=== PATIENT | male | born 1940 | race Caucasian/White ===

== ENCOUNTER 2016-08-16 07:52 | Emergency (ER) | payer OTHER, MEDICARE ==
[2016-08-16 08:09] VITALS: BP 145/87; PULSE 80; RESP 16; TEMP 99.1; O2SAT 98
--- NOTE | 2016-08-16 08:17 | EDPHY ---
H & P Time Seen by Provider: 08/16/16 08:17 HPI/ROS: CHIEF COMPLAINT: Sore throat HISTORY OF PRESENT ILLNESS: Patient started getting sick on Thursday of this week with a sore throat followed by 2-3 days of fever and chills and decreased energy. He felt clammy and developed a cough which was worse at night and last night was up all night because of sore throat and cough. He also has some nasal congestion related. REVIEW OF SYSTEMS: Eye: no change in vision ENT: No ear symptoms or dental symptoms Cardiac: no chest pain or syncope Pulmonary: Not short of breath and no hemoptysis Abdomen: no vomiting, diarrhea, abdominal pain Musculoskeletal: no back pain Skin: Recent left cheek biopsy Neuro: no headache Constitutional: HPI : no urinary symptoms A comprehensive 10 point review of systems is otherwise negative aside from elements mentioned in the history of present illness. PAST MEDICAL HISTORY: Hyperlipidemia Social history: Travel to [place] in June but no other 3rd world travel. [facility]. General Appearance: Alert and conversant, cooperative. Eyes: No scleral icterus. ENT, Mouth: Slight pharyngeal erythema but no exudate and no trismus. No dental tenderness or gum swelling. Uvula midline. Floor of the mouth is soft. Respiratory: Normal respiratory effort, breath sounds equal, lungs are clear to auscultation. No stridor or drooling. Cardiovascular: Regular rate and rhythm. Gastrointestinal: Abdomen is soft and non tender. Neurological: Alert and oriented x3. Normally conversant. Face symmetric, normal movement and sensation in all extremities. Skin: Warm and dry, no rashes. Band-Aid over left cheek biopsy site. Musculoskeletal: No peripheral edema and no joint swelling. Neck supple. Psychiatric: Not agitated. Emergency Department course/MDM: Rapid strep negative. Oral dexamethasone discussed and consented. Flu test ordered to better informed patient of possible duration of symptoms. No history of ulcer and advised to take his Aleve which he has at home scheduled for the next 72 hours. I think that deep space neck infection or epiglottitis is unlikely, antibiotics not indicated, out of the 48 hour window for Tamiflu even if influenza is positive. Smoking Status: Former smoker Constitutional: Initial Vital Signs Temperature (C) 37.3 C 08/16/16 08:06 Heart Rate 80 08/16/16 08:06 Respiratory Rate 16 08/16/16 08:06 Blood Pressure 145/87 H 08/16/16 08:06 O2 Sat (%) 98 08/16/16 08:06 O2 Delivery Mode Room Air Allergies/Adverse Reactions: No Known Allergies Allergy (Verified 08/16/16 08:05) Home Medications: Medication Instructions Recorded Simvastin Unk Dose 05/18/14 Medical Decision Making Differential Diagnosis: Differential considered including but not limited to influenza, strep throat, viral pharyngitis, epiglottitis, peritonsillar abscess. - Data Points Laboratory Results: 08/16/16 08/16/16 08/16/16 Unknown 08:20 08:00 Influenza Typ A,B (DFA) POSITIVE FOR FLU B H (NEGATIVE) Group A Strep Screen NEGATIVE (NEGATIVE) Group A Strep DNA Pending Medications Given: Discontinued Medications Dexamethasone (Dexamethasone) 8 mg PO EDNOW ONE Stop: 08/16/16 08:39 Last Admin: 08/16/16 08:47 Dose: 8 mg Departure - Departure Disposition: Home, Routine, Self-Care Clinical Impression: Influenza B Pharyngitis Qualifiers: Pharyngitis/tonsillitis etiology: unspecified etiology Qualified Code(s): J02.9 - Acute pharyngitis, unspecified Condition: Good Instructions: Pharyngitis (ED), Influenza (ED) Additional Instructions: 1) rapid strep test negative 2) oral Aleve as on the bottle, scheduled for the next 72 hours 3) cough medication as discussed 4) you received a single dose of 8 mg oral dexamethasone in the emergency department 5) positive test for influenza B Referrals: Myles Hugo MD [Primary Care Provider] - As per Instructions
[2016-08-16] MEDS ORDERED: DEXAMETHASONE 2 MG TAB PO ONE (08:38)
[2016-08-16] MEDS ORDERED: DEXAMETHASONE 4 MG TAB ONE ×2 (08:41→08:45)
== END 2016-08-16 08:45 | disposition home or self-care (01) ==
DX: J10.1 Influenza due to other identified influenza virus with other respiratory manifestations (principal); Z87.891 Personal history of nicotine dependence

== ENCOUNTER 2016-12-20 11:21 | Emergency (ER) | payer OTHER, MEDICARE ==
[2016-12-20 11:47] VITALS: RESP 16
--- NOTE | 2016-12-20 12:12 | EDPHY ---
H & P Time Seen by Provider: 12/20/16 12:11 HPI/ROS: Chief complaint. Blood in urine HPI. 76-year-old male presents with blood from his penis after urination and after intercourse beginning 4 days ago. Initially the patient had intercourse with his and nose blood from his penis after the intercourse. There was no trauma or injury during intercourse. Then he was able to urinate normally without blood for 2 days. Last evening he urinated normally and urine was normal color and then following urination he had approximately 2 tbsp of blood from his penis. This happened again today. He has no abdominal pain no fever, no urinary frequency or dysuria. He does have a history of enlarged prostate with elevated PSA but biopsies were negative ROS Constitutional. no fever/chills, no weakness Eyes. no problems with vision ENT. no sore throat, no nasal drainage Cardiovascular. no chest pain Respiratory. no shortness of breath, no cough Abdominal. no abdominal pain, no nausea/vomiting, no diarrhea . Blood from penis after urination MS. no calf pain/swelling, no neck/back pain, no joint pain Skin. no rash Lymph. no swollen glands Neuro. no headache, no dizziness, no difficulty walking or with speech Past Medical/Surgical History: Past medical history significant for dyslipidemia, BPH Social History: , nonsmoker, no alcohol Smoking Status: Never smoked Physical Exam: General Appearance: Alert well-developed male mild distress vital signs are stable Eyes: Pupils equal and round no pallor or injection. ENT, Mouth: Mucous membranes are moist. Respiratory: There are no retractions, lungs are clear to auscultation. Cardiovascular: Regular rate and rhythm. Gastrointestinal: Abdomen is soft and nontender, no masses, bowel sounds normal. Penis and testicles are normal. Prostate is enlarged but is nontender. Neurological: Awake and alert, sensory and motor exams grossly normal. Skin: Warm and dry, no rashes. Musculoskeletal: Neck is supple nontender. Extremities symmetrical, full range of motion. Psychiatric: Patient is oriented X 3, there is no agitation. Constitutional: Initial Vital Signs Temperature (C) 36.5 C 12/20/16 11:42 Heart Rate 72 12/20/16 11:42 Respiratory Rate 16 12/20/16 11:42 Blood Pressure 171/107 H 12/20/16 11:42 O2 Sat (%) 98 12/20/16 11:42 O2 Delivery Mode Room Air Allergies/Adverse Reactions: No Known Allergies Allergy (Verified 08/16/16 08:05) Home Medications: Medication Instructions Recorded Simvastin Unk Dose 05/18/14 ASPIRIN 12/20/16 Viagra 12/20/16 Medical Decision Making ED Course/Re-evaluation: Urinalysis shows trace blood. Re-evaluation and the patient is stable. The patient, his , and I discussed treatment plan including criteria for return importance of follow-up and further evaluation I consulted with Dr. Dickerson who is in surgery but I relate information through his nurse. We would like for the patient to be re-evaluated by Dr. Dickerson on Thursday. Differential Diagnosis: I suspect that this is problem with patient's prostate as he has normal urination and then postvoid bleeding. I considered prostatitis however his prostate is not tender. I considered urinary tract infection and cystitis. Patient has no symptoms consistent with kidney stone - Data Points Laboratory Results: 12/20/16 12:27 Urine Color YELLOW Urine Appearance CLEAR Urine pH 7.0 (5.0-7.5) Ur Specific [place] 1.019 (1.002-1.030) Urine Protein NEGATIVE (NEGATIVE) Urine Ketones NEGATIVE (NEGATIVE) Urine Blood NEGATIVE (NEGATIVE) Urine Nitrate NEGATIVE (NEGATIVE) Urine Bilirubin NEGATIVE (NEGATIVE) Urine Urobilinogen NEGATIVE EU EU (0.2-1.0) Ur Leukocyte Esterase NEGATIVE (NEGATIVE) Urine RBC 10-15 /hpf H /hpf (0-3) Urine WBC 1-3 /hpf /hpf (0-3) Ur Epithelial Cells NONE SEEN /lpf /lpf (NONE-1+) Urine Glucose NEGATIVE (NEGATIVE) Departure - Departure Disposition: Home, Routine, Self-Care Clinical Impression: Hematuria Qualifiers: Hematuria type: gross Qualified Code(s): R31.0 - Gross hematuria Condition: Good Instructions: Hematuria (ED) Additional Instructions: Return over the weekend for worsening symptoms. I called and relayed the information to Dr. Epps for on-call for urology. Please call his office on Thursday morning at 9:00 a.m. for re-evaluation. Referrals: Myles Hugo MD [Primary Care Provider] - As per Instructions Hussein Dickerson MD [Medical Doctor] - 1-2 days without fail
[2016-12-20 12:51] LABS: COLOR YELLOW; LEUKOCYTE ESTERASE,URINE NEGATIVE (NEGATIVE); NITRITE,URINE NEGATIVE (NEGATIVE)
[2016-12-20 15:07] VITALS: BP 137/79; PULSE 53; TEMP 98.1; O2SAT 95
== END 2016-12-20 15:07 | disposition home or self-care (01) ==
DX: R31.0 Gross hematuria (principal); Z79.82 Long term (current) use of aspirin

== ENCOUNTER → 2017-01-15 | Outpatient (CLI) | payer OTHER, MEDICARE ==
[~2017-01-15] MED LIST: GADOBUTROL 10 ML VIAL IVP ONE
== END ==
LOC: FIMAGING 08:02
PROVIDERS: ATTEND Urology
DX: N40.2 Nodular prostate without lower urinary tract symptoms (principal); R97.20 Elevated prostate specific antigen [PSA]
CPT/HCPCS: 72197; 76377; A9585

== ENCOUNTER → 2017-02-09 | Outpatient (CLI) | payer OTHER, MEDICARE | LOC: BMCIMAGING 10:21 | PROVIDERS: ATTEND Internal Medicine | DX: M25.512 Pain in left shoulder (principal) | CPT/HCPCS: 73030; 90662; G0008; G0463 ==

== ENCOUNTER 2017-09-12 23:23 | Inpatient (IN) | payer OTHER, MEDICARE ==
--- NOTE | 2017-09-12 23:33 | CPEKG ---
Heart Rate: 56 RR Interval: 1071 P-R Interval: 260 QRSD Interval: 124 QT Interval: 468 QTC Interval: 452 P [place]: 54 QRS [place]: 66 T Wave [place]: 43 EKG Severity - ABNORMAL ECG - EKG Impression: SINUS RHYTHM EKG Impression: VENTRICULAR PREMATURE COMPLEX EKG Impression: FIRST DEGREE AV BLOCK EKG Impression: NONSPECIFIC INTRAVENTRICULAR CONDUCTION DELAY Electronically Signed By: Jose Alvarez 13-Sep-2017 05:24:27
[2017-09-12] MEDS ORDERED: LIDOCAINE 2% VISCOUS 15 ML UDCUP ONE (23:35)
[2017-09-12] MEDS ORDERED: MAG HYDROX/AL HYDROX/SIMETH 30 ML UDCUP ONE (23:35)
[2017-09-12] MEDS ORDERED: ASPIRIN 81 MG CHEWABLE TAB ONE (23:35)
[2017-09-12] MEDS ORDERED: LIDOCAINE 2% VISCOUS 15 ML UDCUP PO ONE (23:39)
[2017-09-12] MEDS ORDERED: MAG HYDROX/AL HYDROX/SIMETH 30 ML UDCUP PO ONE (23:39)
[2017-09-12] MEDS ORDERED: ASPIRIN 81 MG CHEWABLE TAB PO ONE (23:40)
[2017-09-12 23:45] LABS: PLATELET COUNT 211 10^3/uL (150-400)
--- NOTE | 2017-09-12 23:45 | EDPHY ---
H & P Time Seen by Provider: 09/12/17 23:27 HPI/ROS: Chief Complaint: Chest pain HPI: 77-year-old male began having lower chest and epigastric pain at 7:30 a.m. After eating dinner. Patient states that he 8 more than usual. The pain is been constant over the last 4 hr. There are no aggravating or alleviating factors. No shortness of breath. It is not radiating. Right now is about an 8 /10. He did take some Advil earlier without any relief. He had a similar episode about a week ago and the pain persisted overnight but had improved by morning. Does not have a family history of coronary artery disease. He does have a history of hyperlipidemia and prostate cancer. He has also seen border guard in the past but this is not for coronary artery disease. He is not sure why was referred to the border guard. No shortness of breath. No nausea or vomiting. No diarrhea or constipation. No recent travel. No leg pain or swelling. Pain is described as a dull aching in his upper abdomen. He does occasionally take Viagra, last was taken 3 days ago. ROS: 10 point Review of Systems is negative except as noted in the HPI. PMH: Prostate cancer, hyperlipidemia Social History: No smoking, occasional alcohol, no other drug use Family History: non-contributory Physical Exam: Gen: Awake, Alert, uncomfortable appearing HEENT: Nose: no rhinorrhea Eyes: PERRLA, EOMI Mouth: Moist mucosa Neck: Supple, no JVD Chest: nontender, lungs clear to auscultation Heart: S1, S2 normal, no murmur Abd: Soft, non-tender, no guarding Back: no CVA tenderness, no midline tenderness Ext: no edema, non-tender Skin: no rash Neuro: CN II-XII intact, Sensation grossly intact, Strength 5/5 in bilateral upper and lower extremities - Medical/Surgical History Hx Asthma: No Hx Chronic Respiratory Disease: No Hx Diabetes: No Hx Cardiac Disease: No Hx Renal Disease: No Hx Cirrhosis: No Hx Alcoholism: No Hx HIV/AIDS: No Hx Splenectomy or Spleen Trauma: No Other PMH: PMH: hyperlipidemia, BPH. PSH: NONE - Social History Smoking Status: Never smoked Constitutional: Initial Vital Signs Temperature (C) 36.6 C 09/12/17 23:25 Heart Rate 56 L 09/12/17 23:25 Respiratory Rate 18 09/12/17 23:25 Blood Pressure 217/99 H 09/12/17 23:25 O2 Sat (%) 96 09/12/17 23:25 O2 Delivery Mode Room Air O2 (L/minute) 3 Allergies/Adverse Reactions: No Known Allergies Allergy (Verified 09/12/17 23:42) Home Medications: Medication Instructions Recorded ASPIRIN 12/20/16 Viagra 12/20/16 Lipitor 40 mg (*) 09/12/17 Multivitamins 09/12/17 Medical Decision Making - Diagnostics EKG Interpretation: ECG time 11:30 p.m. Sinus rhythm with a rate of 56. There is a first-degree AV block. Nonspecific intraventricular conduction delay. No acute ST or T-wave changes. There is a single premature ventricular complex. Imaging Results: Chest x-ray shows no acute abnormality. He does have large gastric bubble. Imaging: I viewed and interpreted images myself ED Course/Re-evaluation: 77-year-old male with epigastric pain for the last 4 hr. He received aspirin here. No relief with GI cocktail. No relief with nitroglycerin x2. Initially was hypertensive and 14 is come down to 140 after nitro x2. He has had relief with morphine, is now down to a 2/10. No acute findings on his ECG but he does have first-degree AV block. Troponin is negative. LFTs are unremarkable. Abdomen is soft and benign. Will admit to the hospitalist for further monitoring and cardiac rule out. - Data Points Laboratory Results: Laboratory Results 09/12/17 23:35 09/12/17 23:35 09/12/17 09/12/17 09/12/17 23:35 23:35 23:35 WBC 9.68 10^3/uL H 10^3/uL (3.80-9.50) RBC 5.24 10^6/uL 10^6/uL (4.40-6.38) Hgb 16.8 g/dL g/dL (13.7-17.5) Hct 47.4 % % (40.0-51.0) MCV 90.5 fL fL (81.5-99.8) MCH 32.1 pg pg (27.9-34.1) MCHC 35.4 g/dL g/dL (32.4-36.7) RDW 12.2 % % (11.5-15.2) Plt Count 211 10^3/uL 10^3/uL (150-400) MPV 9.4 fL fL (8.7-11.7) Neut % (Auto) 80.3 % H % (39.3-74.2) Lymph % (Auto) 14.2 % L % (15.0-45.0) [place] % (Auto) 3.5 % L % (4.5-13.0) Eos % (Auto) 0.9 % % (0.6-7.6) Baso % (Auto) 0.8 % % (0.3-1.7) Nucleat RBC Rel Count 0.0 % % (0.0-0.2) Absolute Neuts (auto) 7.77 10^3/uL H 10^3/uL (1.70-6.50) Absolute Lymphs (auto) 1.37 10^3/uL 10^3/uL (1.00-3.00) Absolute Monos (auto) 0.34 10^3/uL 10^3/uL (0.30-0.80) Absolute Eos (auto) 0.09 10^3/uL 10^3/uL (0.03-0.40) Absolute Basos (auto) 0.08 10^3/uL 10^3/uL (0.02-0.10) Absolute Nucleated RBC 0.00 10^3/uL 10^3/uL (0-0.01) Immature Gran % 0.3 % % (0.0-1.1) Immature Gran # 0.03 10^3/uL 10^3/uL (0.00-0.10) Turbidity Cancelled Sodium 141 mEq/L mEq/L Cancelled (135-145) Potassium 4.3 mEq/L mEq/L Cancelled (3.5-5.2) Chloride 102 mEq/L mEq/L Cancelled (97-110) Carbon Dioxide 27 mEq/l mEq/l Cancelled (22-31) Anion Gap 12 mEq/L mEq/L Cancelled (8-16) BUN 29 mg/dL H mg/dL Cancelled (7-23) Creatinine 0.9 mg/dL mg/dL Cancelled (0.7-1.3) Estimated GFR > 60 Cancelled Glucose 151 mg/dL H mg/dL Cancelled (70-100) Calcium 9.7 mg/dL mg/dL Cancelled (8.5-10.4) Total Bilirubin 0.7 mg/dL mg/dL (0.1-1.4) Conjugated Bilirubin 0.4 mg/dL mg/dL (0.0-0.5) Unconjugated Bilirubin 0.3 mg/dL mg/dL (0.0-1.1) AST 62 IU/L H IU/L (17-59) ALT 67 IU/L IU/L (21-72) Alkaline Phosphatase 90 IU/L IU/L (38-126) Troponin I < 0.012 ng/mL ng/mL Cancelled (0.000-0.034) Total Protein 8.1 g/dL g/dL (6.3-8.2) Albumin 4.6 g/dL g/dL (3.5-5.0) Lipase 218 IU/L IU/L (23-300) Specimen Hemolysis Cancelled Medications Given: Discontinued Medications Al Hydroxide/Mg Hydroxide (Maalox Susp) 30 ml PO ONCE ONE Stop: 09/12/17 23:40 Last Admin: 09/12/17 23:48 Dose: 30 ml Aspirin (Aspirin) 324 mg PO EDNOW ONE Stop: 09/12/17 23:41 Last Admin: 09/12/17 23:48 Dose: 324 mg Lidocaine (Lidocaine 2% Viscous) 15 ml PO ONCE ONE Stop: 09/12/17 23:40 Last Admin: 09/12/17 23:48 Dose: 15 ml Morphine Sulfate (Morphine) 4 mg IVP EDNOW ONE Stop: 09/13/17 00:14 Last Admin: 09/13/17 00:18 Dose: 4 mg Nitroglycerin (Nitrostat) 0.4 mg SL EDNOW ONE Stop: 09/13/17 00:02 Last Admin: 09/13/17 00:02 Dose: 0.4 mg Ondansetron HCl (Zofran) 4 mg IVP EDNOW ONE Stop: 09/13/17 00:04 Last Admin: 09/13/17 00:07 Dose: 4 mg Departure - Departure Disposition: [facility] Clinical Impression: Chest pain Condition: Fair Referrals: Myles Hugo MD [Primary Care Provider] - As per Instructions
[2017-09-13] MEDS ORDERED: NITROGLYCERIN 0.4 MG BTL SL ONE ×2 (00:01)
[2017-09-13] MEDS ORDERED: ONDANSETRON 4 MG/2 ML VIAL IVP ONE (00:03)
[2017-09-13] MEDS ORDERED: ONDANSETRON 4 MG/2 ML VIAL ONE (00:04)
[2017-09-13] MEDS ORDERED: ONDANSETRON 4 MG/2 ML VIAL IVP PRN (00:58)
[2017-09-13] MEDS ORDERED: CALCIUM CARBONATE 500 MG CHEWABLE TAB PO PRN (01:05)
[2017-09-13] MEDS ORDERED: PANTOPRAZOLE SODIUM 40 MG VIAL IVP ONE (01:35)
[2017-09-13] MEDS ORDERED: LORazepam 2 MG/ML INJ IVP PRN (01:37)
[2017-09-13] MEDS ORDERED: hydrALAZINE 20 MG/ML VIAL IVP PRN (01:39)
[2017-09-13] MEDS ORDERED: METOCLOPRAMIDE 10 MG/2 ML VIAL IVP PRN (01:58)
--- NOTE | 2017-09-13 02:00 | PDGENHP ---
History and Physical - Chief Complaint Epigastric pain and abdominal distension, nausea - History of Present Illness Source-patient provides history and appears reliable. EMR was reviewed and case discussed with ED provider. HPI - Ivan is a very pleasant 77-year-old gentleman who presents emergency department today with complaints of epigastric pain after dinner starting approximately 730 p.m. Patient reports that he was in his usual state of health until this evening when he developed epigastric pressure type pain that radiated across his abdomen in a bandlike formation. He denies any radiation to his back. He did develop some nausea without any vomiting he has had some near episodes but no dry heaving. He has noted some abdominal distension. Belching appears to make his symptoms improved. He has not had any fevers but has been complaining of some chills and sweats since onset of his on symptoms. Patient denies any diarrhea. He has last normal bowel movement for approximately 4-5 p.m.. Denies any melena or hematochezia. Patient denies any recent complaints of chest pain or pressure with exam exertion. No dyspnea. Patient is followed by Dr. Chan Bain for condition which she cannot recall. Patient on has not had any dysuria but he reports an episode of charlie hematuria yesterday. Patient does note a history of recently diagnosed and localized prostate cancer and is not currently undergoing any chemotherapy or had any surgical intervention. He is followed closely by Urology at the [facility]. History Information - Allergies/Home Medication List Allergies/Adverse Reactions: No Known Allergies Allergy (Verified 09/12/17 23:42) Home Medications: ASPIRIN 12/20/16 [Last Taken Unknown] Viagra 12/20/16 [Last Taken Unknown] Lipitor 40 mg (*) 09/12/17 [Last Taken Unknown] Multivitamins 09/12/17 [Last Taken Unknown] I have personally reviewed and updated: family history, medical history, social history, surgical history - Past Medical History Additional medical history: Hyperlipidemia, prostate cancer - Surgical History Additional surgical history: Achilles tendon repair - Family History Additional family history: No family history of CAD or MA. - Social History Smoking Status: Never smoked Alcohol Use: Occasionally (2 times weekly) Drug Use: None Additional social history: Patient is and lives with his . Cor status is DNR DNI. Review of Systems Review of Systems: ROS: 10pt was reviewed & negative except for what was stated in HPI & below Constitutional: Reports: chills. Denies: fever, malaise, recent illness EENMT: Reports: other (Left hearing loss. Patient uses hearing aid). Denies: blurred vision, double vision, nose congestion, sore throat Cardiac: Reports: no symptoms. Denies: chest pain, edema, palpitations, syncope Respiratory: Reports: no symptoms. Denies: cough, shortness of breath Gastrointestinal: Reports: abdominal pain, abdominal distention, nausea. Denies : vomitting, black stools, diarrhea Genitourinary: Reports: hematuria. Denies: dysuria, flank pain Muscolosketal: Reports: joint pain (Chronic osteoarthritis unchanged), other. Denies: muscle pain Skin: Reports: no symptoms Neurological: Reports: no symptoms Hematologic/Lymphatic: Reports: no symptoms Physical Exam Physical Exam: Selected Entries 09/12/17 23:25 Blood Pressure Automatic Method Heart Rate 56 L Respiratory 18 Rate O2 Sat (%) 96 Temperature (C) 36.6 C Blood Pressure 217/99 H Mean Arterial 138 H Pressure (MAP) O2 Delivery Room Air Mode Temperature Oral Source Temp Pulse Resp BP Pulse Ox 36.5 C 46 L 18 202/91 H 97 09/13/17 01:25 09/13/17 01:25 09/13/17 01:25 09/13/17 01:25 09/13/17 01:25 O2 (L/minute) 2 Constitutional: uncomfortable, other (Mild distress secondary to nausea. Pleasant elderly gentleman is lying very still in bed. He does rubs the upper abdomen.) Eyes: PERRL (Decreased reactivity light bilaterally but symmetric. ), anicteric sclera, EOMI, No scleral injection Ears, Nose, Mouth, Throat: dry mucous membranes, hard of hearing (Mild), other ( No nasal discharge), No poor dentition Cardiovascular: no murmur, rub, or gallop, pulses symmetric bilaterally, bradycardia, No edema Peripheral Pulses: 2+: dorsalis-pedis (R), dorsalis-pedis (L) Respiratory: no respiratory distress, no rales or rhonchi, clear to auscultation , other (Unlabored breathing. Patient does start to breathe a little more heavily when complaining of some nausea.), No reduced air movement, No expiratory wheeze Gastrointestinal: normoactive bowel sounds, no palpable masses, distension, No tenderness, No arzola's sign, No guarding Genitourinary: other (No CVA tenderness.), No no bladder tenderness (Patient complaints of some discomfort with suprapubic palpation), No holliday in urethra Skin: warm, normal color, no rashes or abrasions Musculoskeletal: other (Patient lays still for majority of the visit. He is able to roll to his side and sit up independently. Strength grossly normal.) Neurologic: AAOx3, sensation intact bilaterally, other (Grossly nonfocal exam.) , No facial droop Psychiatric: interacting appropriately, not anxious, not encephalopathic, thought process linear, flat affect (Patient is very pleasant but he does appear to feel unwell.), No agitated Lab Data & Imaging Review 09/12/17 23:35 09/12/17 23:35 WBC 9.68 10^3/uL (3.80-9.50) H 09/12/17 23:35 RBC 5.24 10^6/uL (4.40-6.38) 09/12/17 23:35 Hgb 16.8 g/dL (13.7-17.5) 09/12/17 23:35 Hct 47.4 % (40.0-51.0) 09/12/17 23:35 MCV 90.5 fL (81.5-99.8) 09/12/17 23:35 MCH 32.1 pg (27.9-34.1) 09/12/17 23:35 MCHC 35.4 g/dL (32.4-36.7) 09/12/17 23:35 RDW 12.2 % (11.5-15.2) 09/12/17 23:35 Plt Count 211 10^3/uL (150-400) 09/12/17 23:35 MPV 9.4 fL (8.7-11.7) 09/12/17 23:35 Neut % (Auto) 80.3 % (39.3-74.2) H 09/12/17 23:35 Lymph % (Auto) 14.2 % (15.0-45.0) L 09/12/17 23:35 [place] % (Auto) 3.5 % (4.5-13.0) L 09/12/17 23:35 Eos % (Auto) 0.9 % (0.6-7.6) 09/12/17 23:35 Baso % (Auto) 0.8 % (0.3-1.7) 09/12/17 23:35 Nucleat RBC Rel Count 0.0 % (0.0-0.2) 09/12/17 23:35 Absolute Neuts (auto) 7.77 10^3/uL (1.70-6.50) H 09/12/17 23:35 Absolute Lymphs (auto) 1.37 10^3/uL (1.00-3.00) 09/12/17 23:35 Absolute Monos (auto) 0.34 10^3/uL (0.30-0.80) 09/12/17 23:35 Absolute Eos (auto) 0.09 10^3/uL (0.03-0.40) 09/12/17 23:35 Absolute Basos (auto) 0.08 10^3/uL (0.02-0.10) 09/12/17 23:35 Absolute Nucleated RBC 0.00 10^3/uL (0-0.01) 09/12/17 23:35 Immature Gran % 0.3 % (0.0-1.1) 09/12/17 23:35 Immature Gran # 0.03 10^3/uL (0.00-0.10) 09/12/17 23:35 Turbidity Cancelled 09/12/17 23:35 Sodium 141 mEq/L (135-145) 09/12/17 23:35 Potassium 4.3 mEq/L (3.5-5.2) 09/12/17 23:35 Chloride 102 mEq/L (97-110) 09/12/17 23:35 Carbon Dioxide 27 mEq/l (22-31) 09/12/17 23:35 Anion Gap 12 mEq/L (8-16) 09/12/17 23:35 BUN 29 mg/dL (7-23) H 09/12/17 23:35 Creatinine 0.9 mg/dL (0.7-1.3) 09/12/17 23:35 Estimated GFR > 60 09/12/17 23:35 Glucose 151 mg/dL (70-100) H 09/12/17 23:35 Calcium 9.7 mg/dL (8.5-10.4) 09/12/17 23:35 Total Bilirubin 0.7 mg/dL (0.1-1.4) 09/12/17 23:35 Conjugated Bilirubin 0.4 mg/dL (0.0-0.5) 09/12/17 23:35 Unconjugated Bilirubin 0.3 mg/dL (0.0-1.1) 09/12/17 23:35 AST 62 IU/L (17-59) H 09/12/17 23:35 ALT 67 IU/L (21-72) 09/12/17 23:35 Alkaline Phosphatase 90 IU/L (38-126) 09/12/17 23:35 Troponin I < 0.012 ng/mL (0.000-0.034) 09/12/17 23:35 Total Protein 8.1 g/dL (6.3-8.2) 09/12/17 23:35 Albumin 4.6 g/dL (3.5-5.0) 09/12/17 23:35 Lipase 218 IU/L (23-300) 09/12/17 23:35 Specimen Hemolysis Cancelled 09/12/17 23:35 Assessment & Plan Assessment: Pleasant 77-year-old gentleman with history of HLD and prostate cancer who presents emergency department several hours after onset of epigastric pain following dinner. Epigastric pain - differential diagnosis including gastritis, gastric out lid or bowel obstruction and less likely pancreatitis, angina or dissection. Patient does have an air- fluid level on his chest x-ray. He does continue to have normal bowel sounds in his abdomen overall is quite soft. Will try to treat symptomatic Rhoda he sees status post Magic mouthwash cocktail and Zofran. His pain did improve after morphine but he subsequently developed some nausea. Will add Reglan to the regimen as well as Ativan p.r.n. If nausea persists. If patient's symptoms continue to worsen or bowel sounds become absent will plan to obtain a KUB. Patient's last BM was earlier today and reported to be normal. Nausea without vomiting - Zofran p.r.n.. Reglan p.r.n.. Elevated blood pressure without history of hypertension -patient is currently complaining of nausea without vomiting and abdominal pain. Will continue to treat symptomatically. Hydralazine will be available p.r.n.. In the ED patient did received a dose of nitroglycerin which did drop his blood pressures down from systolic over 200 to 140s. Blood pressures are again up to the 200s. He does not have complaints of chest pain or shortness of breath. Bradycardia - patient with a very transient drop in heart rate to the 30s with complaints of nausea and no vomiting at likely a vagal response versus development of symptomatic bradycardia less likely as patient's heart rate did rebound once his nausea was addressed. Will monitor patient continuously on telemetry. Patient does report that his baseline heart rate is normally a little bit low. Patient denies any lightheadedness or presyncope. Will also check additional electrolytes. Hyperglycemia-relatively mild in this elderly gentleman. Is also a nonfasting laboratory finding. Will plan to repeat BMP in the morning. HLD-resume home meds at discharge. Prostate cancer - patient with follow-up with Urology at [facility] in October. FEN - patient does appear dry. Will add on some IV fluids overnight. Will monitor electrolytes replace if needed. Patient will be made NPO at this time. PPX - SCDs. Holding anticoagulation pending patient's progress and further evaluation as appropriate. May need Lovenox if patient should stay additional day. Cor-is DNR DNI. Disposition-patient has been admitted initially to observation status on the medical floor.
[2017-09-13] MEDS: SIMETHICONE 80 MG TAB CHEW PO SCH ×5 (02:15→20:22)
[2017-09-13] MEDS ORDERED: PANTOPRAZOLE SODIUM 40 MG TAB PO SCH (09:00)
--- NOTE | 2017-09-13 09:49 | HOSPPROG ---
Hospitalist Progress Note Assessment/Plan: Tejas 77-year-old gentleman with history of HLD and prostate cancer who presents emergency department several hours after onset of epigastric pain following dinner. * epigastric pain -on a PPI -pain is persistent, spoke with Dr Ponce who will likely scope later today -will make him NPO, add IV fluids -labs sent to check for H pylori * nausea without vomiting * hypertension without a history of hypertension -on p.r.n. Hydralazine -bp elevated - added scheduled Norvasc * bradycardia -reviewed telemetry monitoring and he has been in sinus -trop neg x 2 * hyperglycemia -stress induced * hyperlipidemia -statin * prostate cancer -patient is follow up with Urology at [facility] in October *plan: Dr Ponce to see, poss dc later today after Dr Ponce sees him Subjective: Ivan is having ongoing pain mainly in epigastric area. Objective: Vital Signs Temp Pulse Resp BP Pulse Ox 36.6 C 69 17 146/75 H 96 09/13/17 08:00 09/13/17 08:00 09/13/17 08:00 09/13/17 08:00 09/13/17 08:00 - Physical Exam Constitutional: uncomfortable, No not in pain Eyes: PERRL Ears, Nose, Mouth, Throat: hearing normal Cardiovascular: regular rate and rhythym Respiratory: no respiratory distress Gastrointestinal: normoactive bowel sounds, tenderness (epigastric) Skin: warm, normal color Musculoskeletal: full muscle strength Neurologic: AAOx3 Psychiatric: interacting appropriately ICD10 Worksheet Patient Problems: Problems Problem Status Onset Chest pain Acute
[2017-09-13] MEDS ORDERED: NS 1,000 ML IV SCH (10:30)
--- NOTE | 2017-09-13 12:09 | ASMTCMCOM ---
CM Note CM Note Notes: 77yr old male admitted for CP, Epigastric pain, Nausea. He has a Hx of HLD and new dx of Prostate CA. Patient lives with his in [place]. No discharge needs anticipated at this time.. Date Signed: 09/13/2017 12:08 PM Electronically Signed By:Ame Rosa LCSW
[2017-09-13] MEDS ORDERED: ZOLPIDEM TARTRATE 5 MG TAB PO PRN (15:02)
--- NOTE | 2017-09-13 15:17 | PDMN ---
Medical Necessity Medical necessity: C/M review: est. > 2 MN LOS for eval and TX of acute and persistent epigastric pain of unclear etiology, nausea without vomiting, hypertension without history of hypertension, bradycardia hyperglycemia- stress induced requiring GI consult, planned abdominal US to evaluate for anype of gallstones - depending on results of this study, possible future surgical consult or EGD, ongoing IV Protonix, IV fluids, cardiac monitoring, pulse oximetry, supplemental O2, comorbid hyperlipidemia, prostate cancer per 2017 Hospitalist progress note.
--- NOTE | 2017-09-13 16:24 | GCON ---
[f rep st] CONSULTATION DATE OF CONSULTATION: 09/13/2017 REFERRING PHYSICIAN: Pallavi Mckeon NP CHIEF COMPLAINT: Epigastric abdominal pain. Dear Pallavi Mckeon: Thank you very kindly for asking me to evaluate the patient in consultation for a chief complaint of epigastric abdominal pain. He is a pleasant 77-year-old gentleman with underlying prostate cancer wh o presents with 1 day of epigastric pain that is pretty moderate in severity. It began yesterday aft er dinner at about 7 o'clock and was rather abrupt in onset and steady. There was no radiation of th e discomfort. It escalated to about a 7 or 8/10 and has stayed pretty steady since but does have epi sodes of worsening that seem to be unrelated to movement or eating. He has denied any nausea or vomi ting but has felt a bit chilled and somewhat unwell since the onset of the pain. There is no radiati on to the back or shoulder. He has had previous episodes of these attacks, the last being a week ago that lasted about a half a day and resolved. He has had also, interestingly, previous attacks of th is type of pain dating back to 2014. A chest CT was done at that time which revealed an 8 mm pancrea tic tail cyst that was felt to be benign and cholelithiasis but no other explanation for pain. He de nies any dysphagia but does have some heartburn. There has been no hematemesis melena or hematochezi a. He denies any overt fever. Database upon admission showed a mild elevation in his AST which is n ew from previous. I am asked to assist with further evaluation and management. PAST MEDICAL HISTORY: Significant for prostate malignancy, previous episodes of epigastric pain, the source of which has really been on identified, a pancreatic tail cyst, hypertension, cholelithiasis. PAST SURGICAL HISTORY: None. MEDICATIONS: Include Norvasc, aspirin, Lipitor, Tums. ALLERGIES: None known. SOCIAL HISTORY: Patient is . He is retired. No tobacco. No alcohol. No substance abuse. FAMILY HISTORY: Negative for gastrointestinal disease. Specifically, denies any family history of p ancreatic cancer, peptic ulcer disease, gallbladder disease, or liver problems. REVIEW OF SYSTEMS: CONSTITUTIONAL: He has had some malaise. He has felt a poor appetite since the onset of this pain. He has had some chills without sweats or overt fever. HEENT: Denies headache, visual disturbance, sore throat, rhinorrhea epistaxis, or difficulty swallowing. PULMONARY: Denies cough, shortness of breath. CARDIOVASCULAR: He reports some substernal discomfort which radiates fr om the epigastric area, but this is nonexertional. He denies palpitations or syncope. He has no wor sening of the chest pain with movement or exertion. GASTROINTESTINAL: Per the HPI and, in addition, he denies any constipation, diarrhea, change in bowel habits, blood in his stool. GENITOURINARY: Ariel martinez does report some episodes of hematuria since admission to the hospital. There is no flank pain or dysuria with the bleeding that he has noted. RHEUMATOLOGIC: He denies any joint pain or focal tende rness or swelling. HEMATOLOGIC: No bruising or bleeding. ENDOCRINE: Denies heat or cold intoleran ce. No polyuria or polydipsia. No nocturia. PSYCHIATRIC: Negative for insomnia, depression, or an xiety. DERMATOLOGIC: He denies rash, pruritus, or jaundice. NEUROLOGIC: He denies paresthesias, w eakness, or falls. No difficulty with speech or cognition. PHYSICAL EXAMINATION: VITAL SIGNS: Blood pressure 146/79, heart rate is 62, respirations are 15, ox ygenation is 92% on 2 L nasal cannula. T-max is 36.9. GENERAL: Comfortable elderly male in no acut e distress. HEENT: Neck supple. Oropharynx clear. No thyromegaly. No jugular venous distention. Sclerae anicteric. Mucous membranes are moist. PULMONARY: Clear to auscultation. There is some p rolonged expiratory phase and some hyperinflated lung volumes. Breath sounds are good and clear thro ughout. CARDIOVASCULAR: Regular rate and rhythm without murmur, rub, or gallop. No edema. No ches t wall tenderness to palpation. GASTROINTESTINAL: Abdomen is tender to palpation in the epigastrium and in the right upper quadrant but mildly so. There is no inspiratory arrest with deep palpation. Bowel sounds are present and normoactive. ABDOMEN: Obese and slightly distended with central tympa ny. No obvious ascites. No palpable mass. No abdominal bruit. No obvious rebound or guarding. MU SCULOSKELETAL: No joint deformity, swelling, or warmth. No CVA tenderness. DERMATOLOGIC: Skin is normal without rash or jaundice. NEURO: Patient is alert, appropriate. Speech is normal. Motor is grossly nonfocal. Cranial nerves are normal, and his facial expressions and movements are symmetric al. No dysarthria. LABORATORIES: White blood count 9.6, hematocrit 47.4, platelets 211. Sodium 141, potassium 4.3, chl oride 102, bicarbonate 27, BUN elevated at 29 with a creatinine of 0.9, glucose 151, calcium 9.7, to nikita bilirubin 0.7, alkaline phosphatase 90, AST 62, ALT 67. Troponins are 0.012 and 0.014. Total pr otein 8.1, albumin 4.6, lipase 218. H pylori serology for IgG is negative. IMAGING: Chest x-ray on 09/12/2017, which showed hyperexpansion with flattening of the lung diaphrag m, suspicious for COPD. The pulmonary vascularity is normal. The pleural surfaces and bony thorax a re negative for any acute abnormality. A previous CT scan of the abdomen and pelvis on February 02, 2015 showed an 8 mm nonenhancing cyst i n the pancreatic tail with otherwise normal pancreatic anatomy, other than fatty infiltration to the pancreatic gland. There is no peripancreatic inflammation or adenopathy. There is no bile duct dila tion, but the gallbladder does have some dependent densities which are consistent with microlithiasis or sludge. CT scan of the chest on January 26, 2015, while being negative for any acute source of what was described as chest pain at that time, does show cholelithiasis and confirms the 8 mm nodule in the pancreatic tail which, on further CT review, was thought to be cystic. IMPRESSION: 1. Epigastric abdominal pain. 2. Cholelithiasis on previous CT imaging from 2014. 3. Mild elevation of an isolated transaminase. 4. Known prostate cancer. 5. An 8 mm pancreatic tail cyst. RECOMMENDATIONS: 1. Right upper quadrant ultrasound. 2. If this shows cholelithiasis, I would ask for a surgical consult to see if the findings of his pe riodic attacks of abdominal pain may represent biliary colic, especially in light of the recurrent na ture of these and the elevation in AST. 3. If his ultrasound is unremarkable for stone disease, then I believe an upper endoscopy is prudent to evaluate his symptoms further. 4. Protonix 40 mg IV b.i.d. 5. N.p.o. until ultrasound is completed, then clear liquid diet. I would again make him n.p.o. afte r midnight, in case he needs endoscopic evaluation or possible gallbladder surgery. 6. His pancreatic tail cyst will need followup. My feeling is that, if his ultrasound does not show stone disease leading to an endoscopy, which is also unremarkable, then a CT scan of the abdomen and pelvis with IV contrast and pancreatic protocol will be arranged to further evaluate this. 7. Monitor LFTs. 8. CBC and complete metabolic tomorrow morning, along with PT/INR. 9. If he develops any worsening symptoms that would require more urgent endoscopy, such as hematemes is or melena, then this will be moved into the algorithm earlier. 10. Further recommendations to follow his ultrasound. I will tentatively arrange for his endoscopy tomorrow morning. 11. Given his age, emphysema, and current pain, we will likely require anesthesia assistance for his procedure. 12. I have discussed this in detail personally with KATY Zavala in charge of the patient's c are today to help coordinate the plan. 13. The family and patient are aware. Thank you very kindly for allowing me to be involved in the care for this patient. Further recommend ations to follow. /[id number]/MODL
[2017-09-13] MEDS: MELATONIN 3 MG TAB PO SCH (20:22)
[2017-09-13] MEDS: PANTOPRAZOLE SODIUM 40 MG VIAL IVP SCH (20:22)
[2017-09-14 04:52] LABS: PLATELET COUNT 178 10^3/uL (150-400)
[2017-09-14] MEDS: PANTOPRAZOLE SODIUM 40 MG VIAL IVP SCH (07:23)
[2017-09-14] MEDS: CHOLECALCIFEROL VIT D3 1,000 UNITS TAB PO SCH (07:27)
[2017-09-14] MEDS: ATORVASTATIN CALCIUM 40 MG TAB PO SCH (07:28)
[2017-09-14] MEDS: ASPIRIN EC 81 MG TAB PO SCH (07:31)
[2017-09-14] MEDS: SIMETHICONE 80 MG TAB CHEW PO SCH ×4 (07:31→20:04)
[2017-09-14] MEDS: MULTIVITAMINS 1 EACH TAB PO SCH (07:32)
[2017-09-14] MEDS: NS 1,000 ML IV SCH (07:48)
--- NOTE | 2017-09-14 08:29 | SOAPPROG ---
SOAP Progress Note Assessment/Plan: Assessment: 1. RUQ pain 2. Fever 3. Elevated LFTs Plan: 1. EGD today to better evaluate abdominal pain 2. U/S showed cholelithiasis and some of his pain pattern is consistent with biliary colic so if his EGD is negative will ask for surgical consultation 3. NPO for now 4. Clears after EGD if negative 09/14/17 08:27 Subjective: CC: RUQ pain is ongoing but mild. worse if he lays on his right side. No nausea. Ongoing low grade fevers. Objective: Vital Signs Temp Pulse Resp BP Pulse Ox 37.2 C 71 18 146/80 H 93 09/14/17 07:20 09/14/17 07:20 09/14/17 07:20 09/14/17 07:20 09/14/17 07:20 Laboratory Results 09/14/17 04:13 09/14/17 04:13 09/13/17 09/14/17 09/15/17 05:59 05:59 05:59 Intake Total 350 75 Output Total 200 Balance 350 -125 Physical Exam - Physical Exam General Appearance: WD/WN, no apparent distress EENT: normal ENT inspection, No scleral icterus (R), No scleral icterus (L) Neck: supple Respiratory: normal breath sounds Cardiac/Chest: regular rate, rhythm Abdomen: normal bowel sounds, soft, other (RUQ TTP mild), No distended, No guarding, No rebound Back: No CVA tenderness Skin: normal color, warm/dry Extremities: No pedal edema Neuro/Psych: alert, normal mood/affect, oriented x 3, No motor weakness ICD10 Worksheet Patient Problems: Problems Problem Status Onset Chest pain Acute
[2017-09-14] MEDS ORDERED: LR 1,000 ML IV ONE (12:10)
--- NOTE | 2017-09-14 12:20 | PDGENHP ---
History & Physical Chief Complaint: RUQ Pain and fever History of Present Illness: 77 yo male with RUQ pain and fever. Pertinent Past, Social, Family History: Prostate cancer. Pancreatic tail cyst. No tobacco. No ETOH. No FH of gastric malignancy, pancreatic cancer or biliary disease. Relevant Physical Exam: NAD. AxO x 3. No icterius. No JVD. CTA B/L. RRR without m/r/g. ABD: TTP RUQ. No R/G. NABS. Cardiorespiratory Assessment: ASA III. EGD
--- NOTE | 2017-09-14 12:26 | PDANEPAE ---
ANE History of Present Illness 77 yo for egd ANE Past Medical History - Cardiovascular History Hx Hypertension: No Hx Arrhythmias: No Hx Chest Pain: No Hx Coronary Artery / Peripheral Vascular Disease: No Hx CHF / Valvular Disease: No Hx Palpitations: No - Pulmonary History Hx Oxygen in Use at Home: No Hx Sleep Apnea: No Sleep Apnea Screening Result - Last Documented: Positive - Endocrine History Hx Diabetes: No ANE Review of Systems Review of Systems: - Exercise capacity METS (RN): 4 METS ANE Patient History - Allergies Allergies/Adverse Reactions: No Known Allergies Allergy (Verified 09/12/17 23:42) - Home Medications Home medications: home medication list seen and reviewed Home Medications: Aspirin EC [Aspirin EC 81 mg (*)] 81 mg PO DAILY 12/20/16 [Last Taken Unknown] Sildenafil Citrate [Viagra 50 MG (*)] 50 mg PO PRN PRN 12/20/16 [Last Taken Unknown] Atorvastatin Calcium 80 mg PO DAILY 09/12/17 [Last Taken Unknown] Multivitamins [Multivitamin (*)] 1 each PO DAILY 09/12/17 [Last Taken Unknown] Cholecalciferol Vit D3 [Vitamin D3 (*)] 2,000 units PO DAILY 09/13/17 [Last Taken Unknown] - NPO status NPO Status: no food or drink >8 hours NPO Since - Liquids (Date): 09/14/17 NPO Since - Liquids (Time): 00:00 NPO Since - Solids (Date): 09/14/17 NPO Since - Solids (Time): 00:01 - Anes Hx Anes Hx: no prior problems - Smoking Hx Smoking Status: Never smoked - Alcohol Use Alcohol Use: Occasionally (2 times weekly) ANE Labs/Vital Signs - Labs Result Diagrams: 09/14/17 04:13 09/14/17 04:13 - Vital Signs Blood Pressure: 133/85 Heart Rate: 91 Respiratory Rate: 15 O2 Sat (%): 92 Height: 5 ft 8 in Weight: 84.35 kg ANE Physical Exam - Airway Neck exam: FROM Mallampati Score: Class 2 Mouth exam: normal dental/mouth exam - Pulmonary Pulmonary: no respiratory distress - Cardiovascular Cardiovascular: regular rate and rhythym - ASA Status ASA Status: II ANE Anesthesia Plan Anesthesia Plan: GA with mask
[2017-09-14] MEDS ORDERED: PROPOFOL/EMULSION 500 MG/50 ML BOTTLE IV ONE (12:28)
--- NOTE | 2017-09-14 12:47 | GIREPORT ---
[facility] Surgical Services - Endoscopy Department Patient Name: Gino Charles Procedure Date: 09/14/2017 12:21 PM Patient Type: Inpatient Attending MD/ ER Physician: Anastacio Ponce MD Procedure: Upper GI endoscopy Indications: Abdominal pain in the right upper quadrant, Nausea with vomiting Providers: Anastacio Ponce MD Medicines: Propofol per Anesthesia Complications: No immediate complications. Description of Procedure: After obtaining informed consent, the endoscope was passed under direct vision. Throughout the procedure, the patient's blood pressure, pulse, and oxygen saturations were monitored continuously. The Endoscope was intro duced through the mouth, and advanced to the second part of duodenum. The [facility] er GI endoscopy was accomplished without difficulty. The patient tolerated th e procedure well. Findings: The esophagus was normal. The stomach was normal. The examined duodenum was normal. Estimated Blood Loss: Estimated blood loss: none. Post Op Diagnosis: - Normal esophagus. - Normal stomach. - Normal examined duodenum. - No specimens collected. - No clear explanation for this patients pain on todays EGD> Recommendation: - Return patient to [facility] for ongoing care. - Clear liquid diet today. - Refer to a surgeon today to evaluate for possible cholelithiasis rela gerson pain and fever. - Continue present medications. - Thank you for allowing me to be involved in the care of your patient. Attending Participation: I personally performed the entire procedure without the assistance of a fellow, resident or surg ical insurance underwriting assistant. Anastacio Ponce MD Anastacio Ponce MD 09/14/2017 12:47:24 PM This report has been signed electronicallyDavid MD Rosario Number of Addenda: 0 Note Initiated On: 09/14/2017 12:21 PM [email or web address]
[2017-09-14] MEDS ORDERED: NALOXONE HCL 0.4 MG/ML INJ IVP PRN (12:49)
[2017-09-14] MEDS ORDERED: ALBUTEROL 3 ML DEYVIAL IH PRN (12:49)
--- NOTE | 2017-09-14 12:50 | POSTANESTH ---
Post Anesthetic Evaluation Cardiovascular Status: Normal, Stable Respiratory Status: Similar to Pre-op Cond. Level of Consciousness/Mental Status: Can Participate in Eval Pain Control: Adequate, Prn Tx Ordered Nausea/Vomiting Control: Adequate, Prn Tx Ordered Complications Possibly Related to Anesthesia: None Noted
--- NOTE | 2017-09-14 14:46 | HOSPPROG ---
Hospitalist Progress Note Assessment/Plan: Pleasant 77-year-old gentleman with history of HLD and prostate cancer who presents emergency department several hours after onset of epigastric pain following dinner. * epigastric pain -on a PPI -s/p EGD which showed nothing acute -ultrasound shows cholelithiasis -reviewed his care w Dr Ponce, patient cont to have vague abdominal pain w fevers/ will get a CT scan of abdomen now -have left a message for Dr Liu to see * nausea without vomiting -none now * hypertension without a history of hypertension -on p.r.n. Hydralazine -bp elevated - added scheduled Norvasc * bradycardia -reviewed telemetry monitoring and he has been in sinus -trop neg x 2 * hyperglycemia -A1c is slightly elevated * hyperlipidemia -statin * prostate cancer -patient is follow up with Urology at [place] in October *plan: get a CT scan of patient's abdomen now, will ask Dr Liu to see and evaluate today. Subjective: Bill said abdominal pain is ongoing. Objective: Vital Signs Temp Pulse Resp BP Pulse Ox 36.7 C 69 16 148/85 H 96 09/14/17 13:38 09/14/17 13:38 09/14/17 13:38 09/14/17 13:38 09/14/17 13:38 Laboratory Results 09/14/17 04:13 09/14/17 04:13 09/13/17 09/14/17 09/15/17 05:59 05:59 05:59 Intake Total 350 375 Output Total 400 Balance 350 -25 - Physical Exam Constitutional: uncomfortable, No not in pain (vague abdominal pain, epigastric area and on right upper quadrant area when he lies on his side) Ears, Nose, Mouth, Throat: hearing normal Cardiovascular: regular rate and rhythym Respiratory: no respiratory distress Gastrointestinal: tenderness Skin: warm Musculoskeletal: full muscle strength Neurologic: AAOx3 Psychiatric: interacting appropriately ICD10 Worksheet Patient Problems: Problems Problem Status Onset Chest pain Acute
--- NOTE | 2017-09-14 15:35 | ASMTCMCOM ---
CM Note CM Note Notes: Discussed patient with hospitalist . He has ongoing abdominal pain. She is ordering a CT and likely surgical consult. Needs to be determined at this point in time. The patient normally lives independent with his . CM to follow. Plan: Needs to be determined. Date Signed: 09/14/2017 03:34 PM Electronically Signed By:Katia Silver RN
[2017-09-14] MEDS ORDERED: IOPAMIDOL (ISOVUE-300) 100 ML BTL ONE (17:18)
--- NOTE | 2017-09-14 19:24 | SOAPPROG ---
MAGALI Progress Note Assessment/Plan: Assessment: 77 male with acute cholecystitis with normal lfts risks and options fully discussed Plan:lap naila in am 09/14/17 19:23 Objective: Vital Signs Temp Pulse Resp BP Pulse Ox 37.9 C 74 21 H 157/80 H 95 09/14/17 19:20 09/14/17 19:20 09/14/17 19:20 09/14/17 19:20 09/14/17 19:20 Laboratory Results 09/14/17 04:13 09/14/17 04:13 09/13/17 09/14/17 09/15/17 05:59 05:59 05:59 Intake Total 350 600 Output Total 400 Balance 350 200 ICD10 Worksheet Patient Problems: Problems Problem Status Onset Chest pain Acute
[2017-09-14] MEDS: ACETAMINOPHEN 325 MG TAB PO PRN (20:04)
[2017-09-14] MEDS: MELATONIN 3 MG TAB PO SCH (20:05)
[2017-09-15] MEDS ORDERED: cefOXitin SODIUM 2 GM in STERILE WATER INJ 21 ML IV ONE (06:30)
--- NOTE | 2017-09-15 07:52 | PDANEPAE ---
ANE History of Present Illness 77 yo for claus yoo ANE Past Medical History - Cardiovascular History Hx Hypertension: No Hx Arrhythmias: No Hx Chest Pain: No Hx Coronary Artery / Peripheral Vascular Disease: No Hx CHF / Valvular Disease: No Hx Palpitations: No - Pulmonary History Hx Oxygen in Use at Home: No Hx Sleep Apnea: No Sleep Apnea Screening Result - Last Documented: Positive - Endocrine History Hx Diabetes: No ANE Review of Systems Review of Systems: - Exercise capacity METS (RN): 4 METS ANE Patient History - Allergies Allergies/Adverse Reactions: No Known Allergies Allergy (Verified 09/12/17 23:42) - Home Medications Home medications: home medication list seen and reviewed Home Medications: Aspirin EC [Aspirin EC 81 mg (*)] 81 mg PO DAILY 12/20/16 [Last Taken Unknown] Sildenafil Citrate [Viagra 50 MG (*)] 50 mg PO PRN PRN 12/20/16 [Last Taken Unknown] Atorvastatin Calcium 80 mg PO DAILY 09/12/17 [Last Taken Unknown] Multivitamins [Multivitamin (*)] 1 each PO DAILY 09/12/17 [Last Taken Unknown] Cholecalciferol Vit D3 [Vitamin D3 (*)] 2,000 units PO DAILY 09/13/17 [Last Taken Unknown] - NPO status NPO Since - Liquids (Date): 09/14/17 NPO Since - Liquids (Time): 23:55 NPO Since - Solids (Date): 09/14/17 NPO Since - Solids (Time): 23:55 - Anes Hx Anes Hx: no prior problems - Smoking Hx Smoking Status: Never smoked - Alcohol Use Alcohol Use: Occasionally (2 times weekly) ANE Labs/Vital Signs - Labs Result Diagrams: 09/14/17 04:13 09/14/17 04:13 - Vital Signs Blood Pressure: 137/79 Heart Rate: 74 Respiratory Rate: 16 O2 Sat (%): 95 Height: 5 ft 8 in Weight: 84.27 kg ANE Physical Exam - Airway Neck exam: FROM Mallampati Score: Class 2 Mouth exam: normal dental/mouth exam - Pulmonary Pulmonary: no respiratory distress - Cardiovascular Cardiovascular: regular rate and rhythym - ASA Status ASA Status: II ANE Anesthesia Plan Anesthesia Plan: general endotracheal anesthesia
[2017-09-15] MEDS ORDERED: MIDAZOLAM 2 MG/2 ML VIAL IVP ONE (07:53)
[2017-09-15] MEDS ORDERED: ceFAZolin 1 GM/5 ML SYR ONE ×3 (07:54→09:14)
[2017-09-15] MEDS ORDERED: HEPARIN 1000 UNIT/1 ML MDV ONE ×3 (07:54→09:13)
[2017-09-15] MEDS ORDERED: BUPIVACAINE 0.5% 30 ML SDV ONE (07:54)
[2017-09-15] MEDS ORDERED: PROPOFOL/EMULSION 500 MG/50 ML BOTTLE IV ONE (08:09)
[2017-09-15] MEDS ORDERED: fentaNYL 250 MCG/5 ML INJ ONE (08:09)
--- NOTE | 2017-09-15 08:17 | SOAPPROG ---
MAGALI Progress Note Assessment/Plan: Assessment: 77 male with acute cholecystitis with normal lfts risks and options fully discussed Plan:lap naila in am 09/14/17 19:23 09/15/17 08:15 afebrile/ less pain/ ready for lap naila/ ct scan shows cholecystitis/ surgical risks and options fully discussed Objective: Vital Signs Temp Pulse Resp BP Pulse Ox 37.8 C 74 16 137/79 H 95 09/15/17 07:25 09/15/17 07:52 09/15/17 07:52 09/15/17 07:52 09/15/17 07:52 Laboratory Results 09/14/17 04:13 09/14/17 04:13 09/14/17 09/15/17 09/16/17 05:59 05:59 05:59 Intake Total 350 800 Output Total 1000 Balance 350 -200 ICD10 Worksheet Patient Problems: Problems Problem Status Onset Chest pain Acute
[2017-09-15] MEDS ORDERED: ROCURONIUM 50 MG/5 ML VIAL ONE (09:08)
[2017-09-15] MEDS ORDERED: ONDANSETRON 4 MG/2 ML VIAL ONE (09:09)
[2017-09-15] MEDS ORDERED: HYDROmorphONE/DILAUDID 2 MG/ML INJ IVP PRN (09:35)
[2017-09-15] MEDS ORDERED: fentaNYL 100 MCG/2 ML INJ IVP PRN (09:35)
[2017-09-15] MEDS ORDERED: ONDANSETRON 4 MG/2 ML VIAL IVP PRN (09:35)
[2017-09-15] MEDS ORDERED: NALOXONE HCL 0.4 MG/ML INJ IVP PRN (09:35)
[2017-09-15] MEDS ORDERED: ALBUTEROL 3 ML DEYVIAL IH PRN (09:35)
--- NOTE | 2017-09-15 09:57 | POSTOPPROG ---
Post Op Note Date of Operation: 09/15/17 Surgeon: Xavier Liu [employer] Supervisor: Alison Esquivel Anesthesiologist: Gerald Tobin Anesthesia: GET(General Endotracheal) Pre-op Diagnosis: cholelithiasis Post-op Diagnosis: same and acute cholecystitis Procedure: lap naila Findings: extremely thickened gallbladder with adhesions and stones, thick dark bile Inf/Abcess present in the surg proc area at time of surgery?: Yes Depth: Organ Space EBL: 250cc Complications: none Drains: Javier Ram Specimen(s): gallbladder to pathology and swab for culture
[2017-09-15] MEDS ORDERED: cefOXitin SODIUM 1 GM in STERILE WATER INJ 10.5 ML IV SCH (12:00)
[2017-09-15] MEDS: ASPIRIN EC 81 MG TAB PO SCH (12:01)
[2017-09-15] MEDS: ATORVASTATIN CALCIUM 40 MG TAB PO SCH (12:01)
[2017-09-15] MEDS: CHOLECALCIFEROL VIT D3 1,000 UNITS TAB PO SCH (12:01)
[2017-09-15] MEDS: MULTIVITAMINS 1 EACH TAB PO SCH (12:02)
[2017-09-15] MEDS: SIMETHICONE 80 MG TAB CHEW PO SCH ×4 (12:02→21:14)
--- NOTE | 2017-09-15 13:59 | HOSPPROG ---
Hospitalist Progress Note Assessment/Plan: Tejas 77-year-old gentleman with history of HLD and prostate cancer who presents emergency department several hours after onset of epigastric pain following dinner. * cholecystitis, cholelithiasis Status post laparoscopic cholecystectomy -continue antibiotics -patient feeling markedly better -has a drain in place * nausea without vomiting -none now * hypertension without a history of hypertension -on p.r.n. Hydralazine -bp elevated - added scheduled Norvasc * bradycardia -reviewed telemetry monitoring and he has been in sinus -trop neg x 2 * hyperglycemia -A1c is slightly elevated * hyperlipidemia -statin * prostate cancer -patient is follow up with Urology at [place] in October *plan: Hopefully will go home the next 1-2 days. Has no complaints Subjective: Ivan said he is already feeling much better since surgery Objective: Vital Signs Temp Pulse Resp BP Pulse Ox 36.9 C 62 13 121/64 H 95 09/15/17 13:51 09/15/17 13:51 09/15/17 13:51 09/15/17 13:51 09/15/17 13:51 Microbiology 09/15/17 09:30 Gram Stain - Final Gallbladder - Swab Laboratory Results 09/14/17 04:13 09/14/17 04:13 09/14/17 09/15/17 09/16/17 05:59 05:59 05:59 Intake Total 012 046 3504 Output Total 1000 80 Balance 350 -200 1220 - Physical Exam Constitutional: no apparent distress, appears nourished, not in pain Eyes: PERRL Ears, Nose, Mouth, Throat: hearing normal Respiratory: no respiratory distress Gastrointestinal: other (Steri-Strips on right side of the abdomen with a MIKA drain with bloody drainage) Skin: warm Musculoskeletal: full muscle strength Neurologic: AAOx3 Psychiatric: interacting appropriately ICD10 Worksheet Patient Problems: Problems Problem Status Onset Chest pain Acute
[2017-09-15] MEDS: cefOXitin SODIUM 1 GM in STERILE WATER INJ 10.5 ML IV SCH ×2 (14:21→21:11)
[2017-09-15] MEDS: OXYCODONE/APAP 5/325 TAB PO PRN ×2 (16:43→23:26)
[2017-09-15] MEDS: MELATONIN 3 MG TAB PO SCH (21:15)
[2017-09-16] MEDS: cefOXitin SODIUM 1 GM in STERILE WATER INJ 10.5 ML IV SCH ×4 (02:49→20:26)
[2017-09-16] MEDS: OXYCODONE/APAP 5/325 TAB PO PRN (06:30)
[2017-09-16] MEDS: SIMETHICONE 80 MG TAB CHEW PO SCH ×4 (08:13→20:26)
[2017-09-16] MEDS: ATORVASTATIN CALCIUM 40 MG TAB PO SCH (08:13)
[2017-09-16] MEDS: ASPIRIN EC 81 MG TAB PO SCH (08:14)
[2017-09-16] MEDS: MULTIVITAMINS 1 EACH TAB PO SCH (08:14)
[2017-09-16] MEDS: CHOLECALCIFEROL VIT D3 1,000 UNITS TAB PO SCH (08:14)
[2017-09-16 09:12] LABS: PLATELET COUNT 225 10^3/uL (150-400)
[2017-09-16] MEDS ORDERED: MAGNESIUM HYDROXIDE 30 ML UDCUP PO PRN (10:42)
[2017-09-16] MEDS ORDERED: POLYETHYLENE GLYCOL 3350 17 GM PKT PO PRN (10:42)
[2017-09-16] MEDS ORDERED: BISACODYL 10 MG SUPP PR PRN (10:42)
--- NOTE | 2017-09-16 10:42 | SOAPPROG ---
SOAP Progress Note Assessment/Plan: Assessment: 77 y/o male s/p lap naila POD#1 S: "excruciating pain" this morning. Pain improved now. Uncomfortable with constipation. Reports that he has not been drinking many fluids because it "fills up the drain" and hurts. O: Alert Afebrile BP up today. Improved after hydralazine administration. RRR No increase WOB Abdomen: firm, distended, +BS. Drain with increasing sanguinous/bilious fluid. CBC stable. Plan: Seen with Dr. Liu. Pt doing much better at time of visit. Will order bowel protocol for constipation. Increased MIKA output likely due to surgical irrigation. 09/16/17 10:37 Objective: Vital Signs Temp Pulse Resp BP Pulse Ox 36.6 C 71 19 132/78 H 92 09/16/17 07:39 09/16/17 07:39 09/16/17 07:39 09/16/17 08:25 09/16/17 07:39 Microbiology 09/15/17 09:30 Gram Stain - Final Gallbladder - Swab Laboratory Results 09/16/17 08:40 09/16/17 04:15 09/15/17 09/16/17 09/17/17 05:59 05:59 05:59 Intake Total 800 2000 Output Total 1000 790 330 Balance -200 1210 -330 ICD10 Worksheet Patient Problems: Problems Problem Status Onset Chest pain Acute
--- NOTE | 2017-09-16 14:23 | HOSPPROG ---
Hospitalist Progress Note Assessment/Plan: Pleasant 77-year-old gentleman with history of HLD and prostate cancer who presents emergency department several hours after onset of epigastric pain following dinner. First encounter, chart reviewed. * cholecystitis, cholelithiasis -Status post laparoscopic cholecystectomy -continue antibiotics -has a drain in place * nausea without vomiting -none now * hypertension without a history of hypertension -on p.r.n. Hydralazine -bp elevated - added scheduled Norvasc * bradycardia -trop neg x 2 * hyperglycemia -A1c is slightly elevated * constipation -bowel therapy * hyperlipidemia -statin * prostate cancer -patient is follow up with Urology at [place] in October *plan: Hopefully will go home the next 1-2 days. Subjective: Up in chair. Was having pain. Belly feels full. Objective: Vital Signs Temp Pulse Resp BP Pulse Ox 36.6 C 62 18 138/76 H 91 L 09/16/17 13:29 09/16/17 13:29 09/16/17 13:29 09/16/17 13:29 09/16/17 13:29 Microbiology 09/15/17 09:30 Gram Stain - Final Gallbladder - Swab Laboratory Results 09/16/17 08:40 09/16/17 04:15 09/15/17 09/16/17 09/17/17 05:59 05:59 05:59 Intake Total 800 2000 Output Total 1000 790 350 Balance -200 1210 -350 - Physical Exam Constitutional: no apparent distress, appears nourished, uncomfortable Eyes: PERRL, anicteric sclera, EOMI Ears, Nose, Mouth, Throat: moist mucous membranes, hearing normal, ears appear normal Cardiovascular: No JVD, No tachycardia, No edema Respiratory: no respiratory distress, no rales or rhonchi, clear to auscultation Gastrointestinal: tenderness, distension, No ascites, No guarding Skin: warm, normal color, No mottled Musculoskeletal: normal joint ROM, no joint effusions, generalized weakness Neurologic: AAOx3 Psychiatric: interacting appropriately, not anxious, not encephalopathic, thought process linear ICD10 Worksheet Patient Problems: Problems Problem Status Onset Chest pain Acute
[2017-09-16] MEDS: NS 1,000 ML IV SCH (15:41)
[2017-09-16] MEDS: MELATONIN 3 MG TAB PO SCH (20:26)
[2017-09-16] MEDS ORDERED: SENNOSIDES/DOCUSATE SODIUM TAB PO SCH (21:00)
[2017-09-17] MEDS: cefOXitin SODIUM 1 GM in STERILE WATER INJ 10.5 ML IV SCH ×2 (03:38→08:51)
[2017-09-17 07:38] VITALS: BP 121/67
[2017-09-17] MEDS: ATORVASTATIN CALCIUM 40 MG TAB PO SCH (08:51)
[2017-09-17] MEDS: CHOLECALCIFEROL VIT D3 1,000 UNITS TAB PO SCH (08:52)
[2017-09-17] MEDS: SIMETHICONE 80 MG TAB CHEW PO SCH (08:52)
[2017-09-17] MEDS: MULTIVITAMINS 1 EACH TAB PO SCH (08:53)
[2017-09-17] MEDS: ASPIRIN EC 81 MG TAB PO SCH (08:53)
--- NOTE | 2017-09-17 10:04 | SOAPPROG ---
SOAP Progress Note Assessment/Plan: Assessment: 77 y/o male s/p lap naila POD#1 S: "excruciating pain" this morning. Pain improved now. Uncomfortable with constipation. Reports that he has not been drinking many fluids because it "fills up the drain" and hurts. O: Alert Afebrile BP up today. Improved after hydralazine administration. RRR No increase WOB Abdomen: firm, distended, +BS. Drain with increasing sanguinous/bilious fluid. CBC stable. Plan: Seen with Dr. Liu. Pt doing much better at time of visit. Will order bowel protocol for constipation. Increased MIKA output likely due to surgical irrigation. 09/16/17 10:37 09/17/17 10:02 Much improved today. Pain well controlled. Passing flatus and BMs. Abdomen distended, but soft, +BS. Afebrile. Drain output down to 10ml in last 24 hours. Pt eager to eat solid food. Advance diet today. Pull drain and discharge home later today. Pt agrees with plan. Discussed with hospitalist. Objective: Vital Signs Temp Pulse Resp BP Pulse Ox 37.0 C 63 17 121/67 H 94 09/17/17 07:32 09/17/17 07:32 09/17/17 07:32 09/17/17 07:32 09/17/17 07:32 Microbiology 09/15/17 09:30 Gram Stain - Final Gallbladder - Swab Laboratory Results 09/16/17 08:40 09/16/17 04:15 09/16/17 09/17/17 09/18/17 05:59 05:59 05:59 Intake Total 1999 2064 Output Total 790 1000 10 Balance 1210 1065 -10 ICD10 Worksheet Patient Problems: Problems Problem Status Onset Chest pain Acute
[2017-09-17 10:15] LABS: PLATELET COUNT 216 10^3/uL (150-400)
[2017-09-17] MEDS: ACETAMINOPHEN 325 MG TAB PO PRN (10:50)
--- NOTE | 2017-09-17 10:54 | ASMTCMCOM ---
CM Note CM Note Notes: Spoke w/CODING EDUCATOR, pt normally independent with ADLs, lives in a home with his . Will dc home w/support of when medically stable. CM available for any changes. DC Plan: Independent Date Signed: 09/17/2017 10:53 AM Electronically Signed By:Gerda Renee RN
--- NOTE | 2017-09-17 10:55 | ASMTLACE ---
KELLY Length of stay for Answers: 4-6 days current admission Acuity / Level of Answers: Yes Care: Did the patient have an inpatient admission? Comorbidities - select Answers: Other Notes: CP, Epigastric pain all that apply # of Emergency department Answers: 1-2 visits in the last 6 months Score: 9 Date Signed: 09/17/2017 10:54 AM Electronically Signed By:Gerda Renee RN
--- NOTE | 2017-09-17 13:30 | GDS ---
[f rep st] DISCHARGE SUMMARY DISCHARGE DIAGNOSES: 1. Cholecystitis. 2. Nausea without vomiting. 3. Hypertension. 4. Bradycardia. 5. Hyperglycemia. 6. Constipation. 7. Hyperlipidemia. 8. History of prostate cancer. CONSULTATIONS: Dr. Liu. STUDIES AND PROCEDURES DONE: Laparoscopic cholecystectomy. PHYSICAL EXAMINATION: GENERAL: The patient is alert. VITAL SIGNS: Afebrile at 37, pulse 63, respi ratory rate 17, blood pressure is 121/67. He is saturating greater than 90% on room air. I have see n evaluated the patient on the day of discharge. HOSPITAL COURSE: the patient, 77-year-old male, presented to the emergency room with complaints of e xcruciating epigastric pain. He was evaluated and diagnosed with: 1. Cholecystitis. During this hospitalization, he received a laparoscopic cholecystectomy performed by Dr. Liu. He is improving. His symptoms have resolved, and he is tolerating a regular diet. 2. Nausea. This has resolved. 3. Hypertension. He was placed on Norvasc during this hospitalization on a small dose of 2.5. This has been discontinued prior to disposition, as I anticipate he will not need it in the future. 4. Bradycardia. This is stable. 5. Hyperglycemia. His hemoglobin A1c is slightly elevated, and he has been notified to follow up wi his primary care physician. 6. Constipation. This has resolved. 7. Hyperlipidemia. 8. History of prostate cancer. DISPOSITION: The patient will be discharged home independently. There are no pending studies. Foll owup will be with his primary care physician, Dr. Myles Hugo, to assess his elevated hemoglobin A1c and potential hypertension. He will also follow up with his urologist at the [place] in October for his history of prostate cancer. Next followup will be with Dr. Jacques Liu in 1-2 weeks for postsu rgical evaluation. DISCHARGE MEDICATIONS: Please refer to EMR form. I have discussed the patient's disposition with [facility] surgical team. They are in agreement with this plan. I have spent greater than 35 minutes in the care, coordination, and management of the patient's disposition. /[id number]/MODL
--- NOTE | 2017-09-17 13:34 | GOP ---
[f rep st] OPERATIVE REPORT DATE OF OPERATION: 09/15/2017 SURGEON: Xavier Liu MD GRIPS: Alison Esquivel PA-C. ANESTHESIA: General endotracheal. ANESTHESIOLOGIST: Erika Tobin MD. PREOPERATIVE DIAGNOSIS: Acute cholecystitis and cholelithiasis. POSTOPERATIVE DIAGNOSIS: Acute cholecystitis and cholelithiasis. PROCEDURE PERFORMED: Laparoscopy cholecystectomy. FINDINGS: The patient was found to have severe acute cholecystitis with hydrops of the gallbladder, marked thickening of the gallbladder and adhesions with stones. ESTIMATED BLOOD LOSS: Approximately 250 cc. DESCRIPTION OF PROCEDURE: The patient was brought to the operating room where he received a satisfac tory general endotracheal anesthesia by Dr. Tobin. He was placed in supine position, prepped and draped in usual sterile fashion. A periumbilical incision was made. A Veress needle inserted. Pneu moperitoneum was established. Trocar was introduced. Laparoscope introduced. Visualization was obt ained. Three other trocars were placed in the upper abdomen under direct vision. Gallbladder was co mpletely obscured from vision. Omental tissue was dissected off the liver and the gallbladder, expos ing a tense, thickened, hydropic gallbladder. This was freed up all the way down to the cystic trian gle. The gallbladder was elevated. Cystic triangle was quite thickened and inflamed and difficult t o dissect. The gallbladder was then dissected off the hepatic bed in a retrograde fashion until we g ot down to the cystic triangle area. At that point, a careful dissection was done of the cystic brandon ry and the cystic duct, which was quite thickened. Good clear view had been obtained. Cystic artery was multiply hemoclipped and divided. The cystic duct was quite thickened. It was then divided wit h an Endo MILTON stapler with care to avoid injury to the common bile duct. The gallbladder was complet juan antonio freed up from the hepatic fossa and then extracted through the upper midline port site, which had to be enlarged to remove this markedly thickened inflamed gallbladder. Hemostasis was obtained. Th e wound was copiously irrigated. Some Richard powder was placed in the gallbladder bed, and a 15 roun d silicone MIKA drain was brought out through one of the lower trocar sites, and secured at the skin wi th a silk suture. The drain was placed in Llamas pouch. Trocars were removed under direct vision. Trocar sites were closed with 0 Vicryl for the fascia, 4-0 Monocryl subcuticular stitch for the ski n. All layers infiltrated with 0.5% Marcaine. COMPLICATIONS: There were no complications. /[id number]/MODL
== END 2017-09-17 12:57 | disposition home or self-care (01) | DRG 419 ==
LOC: OBSVTOIN 09-13 00:33 → INTOOBSV 09-13 00:58 → F3N 09-13 01:12 → F3E 09-16 13:39
PROVIDERS: ADMIT Family Medicine; ATTEND Hospitalist
PROC: 0DJ08ZZ Inspection of Upper Intestinal Tract, Via Natural or Artificial Opening Endoscopic (ICD-10-PCS; 2017-09-14)
PROC: 0FT44ZZ Resection of Gallbladder, Percutaneous Endoscopic Approach (ICD-10-PCS; principal; 2017-09-15 08:15)
DX: K80.00 Calculus of gallbladder with acute cholecystitis without obstruction (principal); E78.5 Hyperlipidemia, unspecified; I10 Essential (primary) hypertension; C61 Malignant neoplasm of prostate; R00.1 Bradycardia, unspecified; R73.9 Hyperglycemia, unspecified; Z66 Do not resuscitate
CPT/HCPCS: 96374; J0360; J0694; J2270; J2405; J2704; J2765; J3010; Q9967